=== PATIENT | female | born 1980 | race Caucasian/White ===

== ENCOUNTER → 2016-05-05 | Outpatient (REF) | payer OTHER | LOC: M LAB REF 15:27 | PROVIDERS: ATTEND Physician Assistant Medical | DX: R30.0 Dysuria (principal) ==

== ENCOUNTER 2021-01-19 07:40 | Outpatient (RCR) | END 2021-01-19 15:00 | disposition home or self-care (01) | LOC: M EMP 07:40 | PROVIDERS: ATTEND Pediatrics | DX: Z11.52 Encounter for screening for COVID-19 (principal) ==

== ENCOUNTER 2024-01-06 13:04 | Emergency (ER) | payer OTHER, SELFPAY ==
[~2024-01-06] VITALS: Ht 172.7 cm; Wt 81.8 kg
[2024-01-06] MEDS: LIDOCAINE W/EPINEPHRINE 1% 20ML VIAL SC ONE (15:35)
[2024-01-06] MEDS ORDERED: DOXY-441 PO (16:04)
[2024-01-06] MEDS ORDERED: METR-265 PO (16:04)
[2024-01-06 16:16] VITALS: BP 142/77; TEMP 97.6; O2SAT 99
[2024-01-06] MEDS: DOXYCYCLINE HYCLATE 100MG TABLET PO ONE (16:17)
[2024-01-06] MEDS: BACITRACIN OINTMENT 30GM TUBE TOP ONE (16:17)
[2024-01-06] MEDS: metroNIDAZOLE (FLAGYL) 500MG TABLET PO ONE (16:17)
== END 2024-01-06 16:26 | disposition home or self-care (01) ==
LOC: M ED 13:04
DX: S81.851A Open bite, right lower leg, initial encounter (principal); Y92.9 Unspecified place or not applicable; Y93.9 Activity, unspecified; Y99.9 Unspecified external cause status; W54.0XXA Bitten by dog, initial encounter; Z88.0 Allergy status to penicillin; Z79.2 Long term (current) use of antibiotics

== ENCOUNTER 2024-10-11 07:45 | Day surgery (SDC) | payer SELFPAY ==
[~2024-10-11] VITALS: Ht 172.7 cm; Wt 87.7 kg
[~2024-10-11 07:45] MED LIST: DOXY-441 PO; METR-265 PO
[2024-10-11] MEDS ORDERED: LIDOCAINE 2% 100 MG/5 ML SDV (FOR ANES.) As Ordered ONE (08:46)
[2024-10-11 09:08] VITALS: TEMP 98.9
[2024-10-11 09:24] VITALS: BP 116/68; O2SAT 100
== END 2024-10-11 09:35 | disposition home or self-care (01) ==
LOC: M OPP 07:45
PROVIDERS: ATTEND Surgery
DX: Z12.11 Encounter for screening for malignant neoplasm of colon (principal); Z88.0 Allergy status to penicillin